=== PATIENT | male | born 1995 | race Caucasian/White ===

== ENCOUNTER 2017-12-17 08:56 | Emergency (ER) | payer OTHER, BC ==
[~2017-12-17] VITALS: Ht 182.8 cm; Wt 122.5 kg
[~2017-12-17 08:56] MED LIST: AMOXICILLIN500 MG PO; AUGMENTIN 875 M1 TAB PO; BACTRIM DS 8001 TA1 PO; CLARITIN10 MG PO; CLINDAMYCIN HC300 MG PO; FLAGYL500 MG PO; LEVOFLOXACIN500 MG PO; MEDROL DOSEPAK4 MG PO; MOTRIN800 MG PO; PROZAC10 MG PO; VALIUM10 MG PO; VICODIN ES 7501 TAB PO; ZITHROMAX Z PA250 MG PO; [UNRECOGNIZED DRUG - REMARK]
[2017-12-17 09:08] VITALS: BP 135/89
[2017-12-17] MEDS ORDERED: CHLORZOXAZONE500 M2 PO (09:10)
[2017-12-17] MEDS ORDERED: NAPROSYN500 MG PO (09:10)
== END 2017-12-17 10:21 | disposition home or self-care (01) ==
LOC: ED 08:56
DX: S29.012A Strain of muscle and tendon of back wall of thorax, initial encounter (principal); R03.0 Elevated blood-pressure reading, without diagnosis of hypertension; F17.200 Nicotine dependence, unspecified, uncomplicated; X58.XXXA Exposure to other specified factors, initial encounter; Y93.89 Activity, other specified; Y92.89 Other specified places as the place of occurrence of the external cause; Y99.8 Other external cause status

== ENCOUNTER 2018-04-18 20:02 | Emergency (ER) | payer BC ==
[~2018-04-18] VITALS: Ht 182.8 cm; Wt 122.5 kg
--- NOTE | ~2018-04-18 | EKG ---
[place], [place] ELECTROCARDIOGRAM REPORT NAME: DONALDO DUARTE UNIT #: [id number] ROOM: DOCTOR: EPIPHANY DRAFT REPORT BIRTHDATE: [birth year] [facility] [place] Test Date: 2018-04-18 Test Time: 20:36:07 Pat Name: DONALDO DUARTE Department: ER Room: 5 Gender: M Division Service Manager: OLENA : 1995 Requested By: ARIANNA ROBERTSON Order Number: [id number] Reading MD: Coty Jacobson MD Measurements Intervals [place] Rate: 70 P: 39 CT: 147 QRS: 28 QRSD: 107 T: 35 QT: 402 QTc: 434 Interpretive Statements Sinus rhythm Electronically Signed On 04-19-2018 9:42:36 PDT by Coty Jacobson MD CM:EKGRPT:ELECTROCARDIOGRAM REPORT [id number] ARIANNA ROBERTSON EPIPHANY DRAFT REPORT ARIANNA ROBERTSON
[~2018-04-18 20:02] MED LIST changes: +CHLORZOXAZONE500 M2 PO; +NAPROSYN500 MG PO
[2018-04-18 20:04] VITALS: BP 134/81
[2018-04-18] MEDS ORDERED: PEPCID20 MG PO (20:20)
== END 2018-04-18 21:03 | disposition home or self-care (01) ==
LOC: ED 20:02
DX: R07.89 Other chest pain (principal); K20.9 Esophagitis, unspecified; F17.200 Nicotine dependence, unspecified, uncomplicated

== ENCOUNTER 2019-02-16 11:01 | Emergency (ER) | payer BC ==
[~2019-02-16] VITALS: Ht 182.8 cm; Wt 127.0 kg
[~2019-02-16 11:01] MED LIST changes: +PEPCID20 MG PO
[2019-02-16 11:03] VITALS: BP 133/84
== END 2019-02-16 12:07 | disposition home or self-care (01) ==
LOC: ED 11:01
DX: G89.29 Other chronic pain (principal); M25.571 Pain in right ankle and joints of right foot; M79.89 Other specified soft tissue disorders; X58.XXXA Exposure to other specified factors, initial encounter; Y93.89 Activity, other specified; Y92.89 Other specified places as the place of occurrence of the external cause; Y99.8 Other external cause status

== ENCOUNTER 2020-10-18 13:58 | Emergency (ER) | payer SELFPAY ==
[~2020-10-18] VITALS: Ht 182.8 cm; Wt 136.1 kg
[2020-10-18 14:09] VITALS: BP 159/99
[2020-10-18] MEDS ORDERED: CEPHALEXIN500 M1 PO (15:33)
== END 2020-10-18 16:05 | disposition home or self-care (01) ==
LOC: ED 13:58
DX: L05.91 Pilonidal cyst without abscess (principal)

== ENCOUNTER 2022-09-08 07:27 | Emergency (ER) | payer SELFPAY ==
[~2022-09-08] VITALS: Ht 182.8 cm; Wt 136.1 kg
[~2022-09-08 07:27] MED LIST changes: +CEPHALEXIN500 M1 PO
[2022-09-08 07:34] VITALS: BP 141/94
[2022-09-08] MEDS ORDERED: VIBRA-TAB100 MG PO (10:08)
== END 2022-09-08 10:31 | disposition home or self-care (01) ==
LOC: ED 07:27
DX: L03.115 Cellulitis of right lower limb (principal); Z79.899 Other long term (current) drug therapy

== ENCOUNTER 2023-06-02 07:14 | Emergency (ER) | payer SELFPAY ==
[~2023-06-02] VITALS: Ht 182.8 cm; Wt 136.1 kg
[~2023-06-02 07:14] MED LIST changes: +VIBRA-TAB100 MG PO
[2023-06-02 07:58] LABS: BASO # 0.1 10*3/uL (0.0-0.1); BASO % 0.9 % (0.0-1.0); EOS # 0.2 10*3/uL (0.0-0.4); EOS % 2.7 % (1.0-4.0); HEMATOCRIT 45.7 % (42.0-52.0); LYMPH # 2.1 10*3/uL (1.3-4.4); LYMPH % 25.9 % (27.0-41.0); MEAN CELL VOLUME 87.7 fl (80.0-94.0); MEAN CORPUSCULAR HGB 29.9 pg (27.0-31.0); MEAN CORPUSCULAR HGB CONC 34.1 g/dl (33.0-37.0); MEAN PLATELET VOLUME 8.9 fl (9.6-12.3); MONO # 0.6 10*3/uL (0.1-1.0); MONO % 8.1 % (3.0-9.0); NEUT # 4.9 10*3/uL (2.3-7.9); PLATELET COUNT AUTOMATED 300 10*3/uL (130-400); RED BLOOD COUNT 5.21 10*6/uL (4.50-5.90); RED CELL DISTRI WIDTH 13.2 % (0-14.5); WHITE BLOOD COUNT 7.9 10*3/uL (4.8-10.8)
[2023-06-02 08:14] LABS: ACT PARTIAL THROMBO TIME 29.9 SECONDS (20.0-32.1)
[2023-06-02 08:18] LABS: ALKALINE PHOSPHATASE 114 U/L (46-116); BUN 9 mg/dl (9-23); CHLORIDE 104 mmol/L (98-107); LIPASE 35 U/L (12-53); POTASSIUM 4.1 mmol/L (3.4-5.1); SGPT/ALT 35 U/L (10-49); TOTAL PROTEIN 7.4 gm/dL (6.0-8.0)
[2023-06-02 11:48] LABS: CHOLESTEROL 188 mg/dL (<200); LDL CHOLESTEROL 122 mg/dL (9-159); TRIGLYCERIDES 105 mg/dl (<150)
[2023-06-02 11:50] VITALS: BP 133/85
== END 2023-06-02 13:13 | disposition short-term general hospital (02) ==
LOC: ED 07:14
PROVIDERS: Emergency Medicine; Internal Medicine Cardiovascular Disease
DX: I21.4 Non-ST elevation (NSTEMI) myocardial infarction (principal); G43.909 Migraine, unspecified, not intractable, without status migrainosus; Z98.890 Other specified postprocedural states

== ENCOUNTER 2024-08-03 11:48 | Emergency (ER) | payer OTHER ==
[~2024-08-03] VITALS: Ht 182.8 cm; Wt 136.1 kg
[2024-08-03 12:00] VITALS: BP 133/89
[2024-08-03] MEDS ORDERED: CARVEDILOL3.125 MG PO (12:11)
[2024-08-03] MEDS ORDERED: CLOPIDOGREL75 MG PO (12:11)
[2024-08-03] MEDS ORDERED: RANOLAZINE ER500 MG PO (12:11)
[2024-08-03] MEDS ORDERED: ASPIRIN ADULT L81 M2 PO (12:11)
[2024-08-03] MEDS ORDERED: Imdur SA60 MG PO (12:11)
[2024-08-03] MEDS ORDERED: ROSUVASTATIN CA40 MG PO (12:12)
[2024-08-03] MEDS ORDERED: LISINOPRIL2.5 MG PO (12:12)
[2024-08-03] MEDS ORDERED: hydrOXYzine pamoate 25 MG CAP PO ONE (12:15)
[2024-08-03 12:26] LABS: BASO # 0.1 10*3/uL (0.0-0.1); BASO % 0.6 % (0.0-1.0); EOS # 0.1 10*3/uL (0.0-0.4); EOS % 0.8 % (1.0-4.0); HEMATOCRIT 43.6 % (42.0-52.0); LYMPH # 1.6 10*3/uL (1.3-4.4); LYMPH % 16.3 % (27.0-41.0); MEAN CELL VOLUME 86.9 fl (80.0-94.0); MEAN CORPUSCULAR HGB 29.5 pg (27.0-31.0); MEAN CORPUSCULAR HGB CONC 33.9 g/dl (33.0-37.0); MEAN PLATELET VOLUME 8.6 fl (9.6-12.3); MONO # 0.6 10*3/uL (0.1-1.0); MONO % 6.5 % (3.0-9.0); NEUT # 7.3 10*3/uL (2.3-7.9); NEUT % 75.5 % (47.0-73.0); PLATELET COUNT AUTOMATED 317 10*3/uL (130-400); RED BLOOD COUNT 5.02 10*6/uL (4.50-5.90); WHITE BLOOD COUNT 9.7 10*3/uL (4.8-10.8)
[2024-08-03 12:37] LABS: ACT PARTIAL THROMBO TIME 29.1 SECONDS (20.0-32.1)
[2024-08-03 12:56] LABS: BUN 13 mg/dl (9-23); CHLORIDE 101 mmol/L (98-107); POTASSIUM 4.4 mmol/L (3.4-5.1)
== END 2024-08-03 13:22 | disposition home or self-care (01) ==
LOC: ED 11:48
PROVIDERS: Physician Assistant Medical
DX: F41.9 Anxiety disorder, unspecified (principal); I10 Essential (primary) hypertension; E78.5 Hyperlipidemia, unspecified; G43.909 Migraine, unspecified, not intractable, without status migrainosus; I25.2 Old myocardial infarction; R10.2 Pelvic and perineal pain; Z98.890 Other specified postprocedural states